=== PATIENT | female | born 1950 | race Caucasian/White ===

== ENCOUNTER 2021-09-23 00:47 | Emergency (ER) | payer BC, MEDICAID ==
[~2021-09-23] VITALS: Ht 162.6 cm; Wt 72.7 kg
[~2021-09-23 00:47] MED LIST: ONDA4TAB12 PO; PANT-47 PO
[2021-09-23] MEDS ORDERED: hyDRALAzine 10mg tablet PO SCH (01:10)
[2021-09-23] MEDS ORDERED: hyDRALAzine 10mg tablet PO ONE (01:10)
[2021-09-23 02:09] VITALS: BP 148/85
== END 2021-09-23 02:54 | disposition home or self-care (01) ==
LOC: ER 00:47
DX: I10 Essential (primary) hypertension (principal); E86.0 Dehydration; R51.9 Headache, unspecified; R19.7 Diarrhea, unspecified; E78.00 Pure hypercholesterolemia, unspecified; E11.9 Type 2 diabetes mellitus without complications; Z86.73 Personal history of transient ischemic attack (TIA), and cerebral infarction without residual deficits; Z72.89 Other problems related to lifestyle; Z98.890 Other specified postprocedural states; Z79.899 Other long term (current) drug therapy
CPT/HCPCS: 99284

== ENCOUNTER 2025-03-23 08:33 | Emergency (ER) | payer MEDICARE, MEDICAID ==
[~2025-03-23] VITALS: Ht 160 cm; Wt 69.0 kg
[~2025-03-23 08:33] MED LIST changes: +ONDA-243 PO; -ONDA4TAB12 PO
[2025-03-23] MEDS ORDERED: NAPR-56 PO (09:29)
[2025-03-23] MEDS ORDERED: CEPH-585 PO (09:29)
--- NOTE | 2025-03-23 09:33 | Physician Documentation ---
History of Present Illness ~ Chief Complaint: Wound Stated Complaint: POST OP COMPLICATIONS Time Seen by MD: 09:18 Primary Medical Doctor: TORRES Source: patient Mode of Arrival: POV, Ambulatory Exam Limitations: no limitations HPI Ms. Gallardo is a 74 y/o female who presents with c/o a wound to her left 5th toe. On a week ago (Mar) she had her toenail removed. She states that she has had pain in the toe since the procedure. She completed a course of Augmentin yesterday and has been soaking the foot. She is without fever/chills. No additional concerns. Tetanus within 5 years?: Yes Medication Reconciliation Allergies: Coded Allergies: No Known Allergies (Unverified , 03/23/25) Scheduled Pantoprazole Sodium (PROTONIX tablet), 1 TABLET PO DAILY Scheduled PRN ONDANSETRON ODT 4mg tablet (Ondansetron Odt), 1 TABLET PO Q6H PRN for nausea/vomiting Past Medical History Past Medical History: CVA/TIA/Stroke, High Cholesterol, Hypertension, Diabetes Past Surgical History: abdominal surgery Alcohol Use: Occasionally Lives In: Home Review of Systems All Other Systems at this time: Reviewed and Negative Physical Exam Vital Signs: RN Vital Signs have been reviewed: Yes, Temperature: 98.0, Source: Oral, Heart Rate: 76, Respiratory Rate: 18, BP: 155/73, Pulse Oximetry: 98, Weight: 69.000 Oxygen Flow Rate: 0 Physical Exam GEN: Alert and oriented and in NAD. HEENT: NC/AT. PERRLA. No scleral icterus. MMM. No oral lesions. NECK: Supple. No JVD. CHEST: RRR. No M/G/T. LUNGS: CTA B. No W/R/R. ABD: Soft. NTND. + BS. No rebounding or guarding. BACK: No CVA TTP. EXT: No c/c/e. Healing wound to the nail of the left 5th toe. No cellulitis or large fluid collection noted. No open wounds appreciated. NEURO: Alert and oriented x 4. Cooperative. Sensorimotor intact x 4 extremities. Progress Results/Orders Results/Orders Orders - SHELDON BELTRAN MD BMP (03/23/25 09:19) Cbc/Diff (03/23/25 09:19) ESR (03/23/25 09:19) C-Reactive Protein (03/23/25 09:19) Vital Signs 03/23/25 03/23/25 08:52 09:19 Temp 98.0 Pulse 76 Resp 18 B/P (MAP) 155/73 Pulse Ox 98 O2 Flow Rate 0 Medical Decision Making Additional information obtaine: N/A Findings While here in the ED, she remained hemodynamically normal with ABC's intact and in NAD. She is afebrile and nontoxic. I examined the wound and there is no large fluid collection, signs of significant cellulitis, or open areas noted. No TTP. No streaks traveling up the foot/leg. Wound appears to be healing well and she actually stated that it has started to look better now that she has been soaking it. No clinical evidence to suggest an underlying significant infection. Will treat with PO Keflex for the next few days while she is awaiting follow-up in clinic. She was given follow-up and return instructions. She voiced understanding and agreement with d/c instructions. Differential Dx:Considerations: Include: Abscess, Cellulitis, Dressing change, Healing wound Departure Disposition: 01 HOME / SELF CARE / HOMELESS Impression: Primary Impression: Wound Condition: Improved Discharge Instructions: How to Change Your Wound Dressing Referrals: NO PRIMARY CARE PROVIDER (PCP) Prescriptions Naproxen (Naproxen) 500 Mg Tablet 1 TAB PO Q12H, #20 TAB Prov: SHELDON BELTRAN MD 03/23/25 Cephalexin*Monohydrate* (Keflex*) 500 Mg Capsule 1 CAP PO Q6H for 7 Days, #28 CAP Prov: SHELDON BELTRAN MD 03/23/25 Education Educated: Patient Educated regarding: diagnosis, treatment ACF Form Admit Criteria Met or Not Met: NO Signature Scribe Signature: N/A Attestation: N/A SHELDON BELTRAN MD Mar 23, 2025 09:33
[2025-03-23 09:46] VITALS: BP 127/62; PULSE 71; RESP 18; TEMP 98; O2SAT 97
== END 2025-03-23 09:48 | disposition home or self-care (01) ==
LOC: ER 08:33
DX: S90.935A Unspecified superficial injury of left lesser toe(s), initial encounter (principal); E11.9 Type 2 diabetes mellitus without complications; E78.00 Pure hypercholesterolemia, unspecified; I10 Essential (primary) hypertension; Z86.73 Personal history of transient ischemic attack (TIA), and cerebral infarction without residual deficits; Z79.899 Other long term (current) drug therapy; Z72.89 Other problems related to lifestyle; X58.XXXA Exposure to other specified factors, initial encounter; Y93.89 Activity, other specified; Y92.89 Other specified places as the place of occurrence of the external cause; Y99.8 Other external cause status
CPT/HCPCS: 99284

== ENCOUNTER 2025-05-17 07:36 | Emergency (ER) | payer MEDICARE, MEDICAID ==
[~2025-05-17] VITALS: Ht 160 cm; Wt 78.0 kg
[2025-05-17] MEDS ORDERED: CEPH-585 PO (07:51)
--- NOTE | 2025-05-17 07:52 | Physician Documentation ---
Addendum CHIEF COMPLAINT/HPI: The patient is a 74-year-old female with no significant past medical history who presents with pain and swelling of her right upper eyelid that began Tuesday, two days ago. She has had styes in the past. No visual disturbance. REVIEW OF SYSTEMS: Constitutional: Denies chills, fatigue, fever, weight gain or weight loss. HEENT: Denies hearing loss, sinus pressure or visual changes. Swelling and pain of the right upper eyelid. Remainder of review of 10 systems negative. PHYSICAL EXAMINATION: Vitals and nursing note reviewed. Constitutional: General: Patient is awake, alert, oriented x 4 in no acute distress and well appearing. Speech is clear and lucid. Appearance: Normal appearance. Patient is not ill-appearing, toxic-appearing or diaphoretic. HENT: Head: Normocephalic and atraumatic. Mouth: Mucous membranes are moist. Pharynx: Oropharynx is clear. Eyes: General: No scleral icterus. Swelling and beginning of pointing of right upper eyelid. Sclera intact. No corneal involvement. Iris appears normal. Extraocular Movements: Extraocular movements intact. Pupils: Pupils are equal, round, and reactive to light. MEDICAL DECISION MAKING: Patient has a hordeolum involving the right upper eyelid. She has been applying warm compresses and I will have her continue. I will also prescribe Keflex for seven days. Departure Disposition: 01 HOME / SELF CARE / HOMELESS Impression: Primary Impression: Hordeolum externum of right upper eyelid Condition: Stable Prescriptions Cephalexin*Monohydrate* (Keflex*) 500 Mg Capsule 2 CAP PO BID, #28 CAP Prov: LAURIE MINER MD 05/17/25 Education Educated: Patient Educated regarding: diagnosis, treatment, prognosis, need for follow up LAURIE MINER MD May 17, 2025 07:52
[2025-05-17 08:03] VITALS: BP 138/78; PULSE 72; RESP 16; O2SAT 98
== END 2025-05-17 08:07 | disposition home or self-care (01) ==
LOC: ER 07:37
DX: H00.011 Hordeolum externum right upper eyelid (principal)
CPT/HCPCS: 99283